=== PATIENT | female | born 1985 | race Caucasian/White ===

== ENCOUNTER → 2017-06-20 20:00 | Outpatient (CLI) | payer OTHER, SELFPAY | PROVIDERS: Family Provider Family Medicine; PCP Family Medicine; Visit Provider Family Medicine | DX: G47.33 Obstructive sleep apnea (adult) (pediatric) (principal) | CPT/HCPCS: 95810 ==

== ENCOUNTER 2017-07-15 06:22 | Emergency (ER) | payer OTHER, SELFPAY ==
[2017-07-15 06:23] VITALS: BP 131/81; PULSE 95; RESP 16; TEMP 37.2; O2SAT 97; BMI 42.1
[2017-07-15 06:26] VITALS: O2SAT 97
--- NOTE | 2017-07-15 06:31 | ED.VISSUMM ---
- ER Visit Summary Date of Service: 07/15/17 Chief Complaint: Sore throat, dyspnea History of Present Illness: The patient is a 32 F sore throat, dyspnea, voice loss since yesterday. No fevers. No sick contacts. No tobacco history. Nontraumatic headache. Nausea vomiting ?1 yesterday. Currently nausea. No hematemesis. No diarrhea. No urinary symptoms. No cough. No other complaints. Physical Examination: General: Alert and oriented ?3, no acute distress, loss of voice HEENT: Normocephalic, atraumatic. Moist mucosa membranes. TMs normal bilaterally. No posterior pharyngeal erythema. Airway patent. No stridor. Neck: supple, nontender. No meningismus. Cardiovascular: Regular rate and rhythm, no murmurs Respiratory: Normal breath sounds, symmetric, no distress Abdomen: Soft, nontender, nondistended Extremities: Nontender, no edema, pulses intact ?4 Neuro: no focal neurological deficits. Test Results: [] Emergency Department Course and Treatment: Patient vital signs stable, no respiratory distress. History presents concerns for laryngitis. She will be given Zofran for dyspnea. Started on Decadron. Tylenol for headache. No focal neurological deficits. No meningismus. Continue oral hydration. Discussed viral syndrome. Follow-up with PCP, return if any worsening symptoms. Treatment Plan: [] Disposition: Discharge Impression: 1. Acute laryngitis 2. Cephalgia This note was generated with ActivePath dictation software. It may contain incorrect words, spelling, and punctuation that were not noted in review of the chart prior to signing ED Disposition - Plan for ED Patient: Disposition: Home or Assisted Living Chief Complaint: Shortness of Breath Diagnosis: Acute laryngitis, Cephalgia Instructions: ED Laryngitis, ED Cephalgia Unspecified Referrals: Rafael Spain MD [Primary Care Provider] - 3-5 Days if not improving
[2017-07-15] MEDS: Ondansetron ODT 4 MG Tablet PO (06:34)
[2017-07-15] MEDS: Acetaminophen 500 MG Tablet 1000 MG PO (06:34)
== END 2017-07-15 07:03 | disposition home or self-care (01) ==
PROVIDERS: Emergency Provider Emergency Medicine; Family Provider Family Medicine; PCP Family Medicine
DX: J04.0 Acute laryngitis (principal); R11.2 Nausea with vomiting, unspecified; R51 Headache; Z79.899 Other long term (current) drug therapy
CPT/HCPCS: 99283

== ENCOUNTER → 2017-07-25 20:15 | Outpatient (CLI) | payer OTHER, SELFPAY | PROVIDERS: Family Provider Family Medicine; PCP Family Medicine; Visit Provider Family Medicine | DX: G47.33 Obstructive sleep apnea (adult) (pediatric) (principal) | CPT/HCPCS: 95811 ==

== ENCOUNTER → 2017-10-24 15:01 | Outpatient (CLI) | payer OTHER, SELFPAY ==
--- NOTE | 2017-10-24 15:20 | RAD_ITS ---
STUDY: X-RAY - CERVICAL SPINE REASON FOR EXAM: Female, 32 years old. No clinical history is given. TECHNIQUE: 4 view(s) of the cervical spine were obtained. COMPARISON: None FINDINGS: There is limited visualization of the atlantoaxial articulation on the open-mouth view. Normal odontoid process. There is reversal of the normal cervical lordosis. Normal vertebral bodies and endplates. Normal disc space heights. The soft tissue structures are unremarkable. RAD/Cerv Spine 2 or 3 Views IMPRESSION: The study is limited due to limited visualization of the atlantoaxial articulation. The odontoid process appears intact. There is reversal of the normal lordotic curvature which may be positional in nature or due to muscular spasm. There is no evidence of fracture or subluxation. Disc spacing is preserved. Electronically Signed: Mason Browne MD at 16:13 EDT , Service support ,
== END ==
PROVIDERS: Family Provider Family Medicine; PCP Family Medicine; Visit Provider Anesthesiology Pain Medicine
DX: M54.2 Cervicalgia (principal)
CPT/HCPCS: 72040

== ENCOUNTER → 2017-11-29 07:02 | Outpatient (CLI) | payer OTHER, SELFPAY ==
--- NOTE | 2017-11-29 07:04 | CT_ITS ---
STUDY: CT MAXILLOFACIAL SINUSES REASON FOR EXAM: Female, 32 years old. Sinusitis. RADIATION DOSAGE (If Supplied By Facility): CTDIvol = ( 33.06 ) mGy, DLP = ( 842.11 ) mGycm TECHNIQUE: The patient was scanned in a multi detector CT scanner. High resolution axial imaging was performed without the administration of intravenous contrast material. Sagittal and coronal images were reconstructed. Individualized dose optimization techniques were used for this CT. COMPARISON: None. FINDINGS: FRONTAL SINUSES: Normal aeration, without mucosal inflammatory disease. ETHMOIDAL SINUSES: Normal aeration, without mucosal inflammatory disease. MAXILLARY SINUSES: There is minimal mucoperiosteal reaction at the base of the right maxillary sinus. SPHENOIDAL SINUSES: Normal aeration, without mucosal inflammatory disease. There is patency of the bilateral maxillary infundibuli with normal uncinate processes, ethmoid bullae, and hiatus semilunaris. There are price bullosa of the bilateral turbinates. Normal bilateral inferior turbinates. Normal midline nasal septum. There is patency of the bilateral nasal airways. The visualized osseous structures are normal. The visualized bilateral orbital contents are normal. CT/Sinus/Facial Bone IMPRESSION: Minimal right maxillary sinusitis. Electronically Signed: Jeff Alejandra DO at 23:54 EDT Tel [phone], Service support ,
== END ==
PROVIDERS: Family Provider Family Medicine; PCP Family Medicine; Visit Provider Otolaryngology
DX: J32.9 Chronic sinusitis, unspecified (principal)
CPT/HCPCS: 70486

== ENCOUNTER → 2018-01-02 15:47 | Outpatient (CLI) | payer OTHER, SELFPAY | PROVIDERS: Visit Provider Otolaryngology | DX: J32.9 Chronic sinusitis, unspecified (principal) | CPT/HCPCS: 87070; 87077; 87186; 87205 ==

== ENCOUNTER → 2018-01-14 11:26 | Outpatient (CLI) | payer OTHER, SELFPAY ==
[2018-01-14 11:30] LABS: Bacteria 0 SEEN /hpf (None Seen); Mucous, Urine 0 SEEN /hpf (<or=2+)
[2018-01-14 14:36] LABS: Color, Urine Yellow (Yellow); Glucose, Dipstick Normal (Normal); Ketone-Dipstick Negative (Negative); Leukocyte Esterase-Dipstick 500 /ul (Negative); Nitrite-Dipstick Negative (Negative); Occult Blood-Urine 10 /ul (Negative); Protein-Dipstick Negative (Negative); Specific Gravity, Urine 1.015 (1.002-1.030); Urine Bilirubin Dipstick Negative (Negative); Urine Clarity Clear (Clear); Urine Urobilinogen Normal (Normal)
[2018-01-14 14:41] LABS: White Blood Cells 10-25 SEEN /hpf (0-5)
[2018-01-14 14:42] LABS: Red Blood Cells-Urine 0-5 SEEN /hpf (0-5); Squamous Epithelial Cells - UA 0-5 SEEN /hpf (5-10)
[2018-01-14 16:09] LABS: Chlamydia Trachomatis by PCR Negative (Negative); Neisserai gonorrhoeae by PCR Negative (Negative); Probe Check PASS; Sample Adequacy Control PASS; Specimen Processing Control PASS
== END ==
PROVIDERS: Family Provider Family Medicine; PCP Family Medicine; Visit Provider Family Medicine
DX: N76.0 Acute vaginitis (principal)
CPT/HCPCS: 81001; 87070; 87077; 87086; 87088; 87205; 87491; 87591

== ENCOUNTER → 2018-02-13 14:54 | Outpatient (CLI) | payer OTHER, SELFPAY ==
--- NOTE | 2018-02-13 14:58 | BI_ITS ---
MAMMOGRAPHY - BILATERAL SCREENING REASON FOR EXAM: Female, 33 years old. Routine annual screening examination. PERTINENT HISTORY: Grandmother with breast cancer. Aunts with breast cancer. TECHNIQUE: Digital bilateral breast marc (3D mammographic acquisition) in the CC and MLO projections. 2-D mediolateral oblique (MLO) and craniocaudad (CC) views of both breasts were obtained. CAD: Full Field Digital Mammography with Computer Added Detection was performed. COMPARISON: None. Baseline examination. FINDINGS: Breast Composition: There are scattered areas of fibroglandular density. There are no dominant masses or suspicious calcifications. No other significant abnormalities are identified. BI/SCREENING MAMM (CAD), BILAT IMPRESSION: Negative screening mammogram. Yearly followup mammogram recommended. (A) ASSESSMENT CATEGORY: BIRADS Category 1: Negative. A letter regarding these results will be sent to the patient by the facility within 30 days. Approximately 10% of breast cancers are not detected by mammography. A normal mammogram should not delay biopsy of a clinically suspicious abnormality. [id number] Electronically Signed: Reggie Laureano MD at 14:46 EDT Tel [phone], Service support ,
== END ==
PROVIDERS: Family Provider Family Medicine; PCP Family Medicine; Visit Provider Nurse Practitioner Family
DX: Z12.31 Encounter for screening mammogram for malignant neoplasm of breast (principal)
CPT/HCPCS: 77063; 77067

== ENCOUNTER → 2018-05-20 17:52 | Outpatient (CLI) | payer OTHER, SELFPAY ==
--- NOTE | 2018-05-20 | IMM_PTH ---
PATIENT: LANCE MALHOTRA LOC: [facility] U#:[id number] AGE/SX: 40/F ROOM: RE05/20/[address]: Dr. Rafael Spain MD : 1985 BED: DIS: SPEC #: [id number] RECD: 05/22/18 12:11 STATUS: LUCRETIA NOREEN #: [id number] MATT: 05/20/18 00:[address]: Rafael Spain DEPT: IMMUNOHISTOCHEMISTRY RECD BY: Nellie Shah Tissues: A - Skin of leg, NOS Procedures: SMA (add) CD34 (add) Vimentin (add) SMM (add) Pankeratin (initial) MELAN-A (add) S-100 (add) PHYSICIAN & INSTITUTION [facility] [phone] SPECIMEN INFORMATION: Tissue Source: A - Left leg mass punch biopsy Clinical Info: Left leg mass Specimen Number: [id number] CPT code: 44147, 20049 x6 METHODOLOGY: Deparaffinized sections of prefer/formalin-fixed tissue or PAP/DQ stained slides are incubated with monoclonal/polyclonal antibodies/oligonucleotide probes. Localization is made via biotin free immunoperoxidase method. Appropriate controls are performed and reacted as expected. Results on target cell population are indicated in the following table: RESULTS: ANTIBODY / CLONE RESULT Block A AE1-3 (AE1/AE3/PCK26) negative Actin (1A4) positive, dim Vimentin (V9) positive Myosin (simms1) negative S-100 (4C4.9) negative Melan A (A103) negative CD34 (QBEnd-10) negative These tests were developed and their performance characteristics determined by [facility]. They may not have been cleared or approved by the U.S. Food and Drug Administration. The FDA has determined that such clearance or approval is not necessary. INTERPRETATION: A. Left leg mass, punch biopsy: Consistent with dermatofibroma AM:cc 05/25/18
--- NOTE | 2018-05-20 15:00 | MASS_PTH ---
PATIENT: LANCE MALHOTRA LOC: [facility] U#:[id number] AGE/SX: 40/F ROOM: RE05/20/[address]: Dr. Rafael Spain MD : 1985 BED: DIS: SPEC #: [id number] RECD: 05/20/18 17:50 STATUS: LUCRETIA NOREEN #: [id number] MATT: 05/20/18 15:[address]: Rafael Spain DEPT: SURGICAL PATHOLOGY RECD BY: Bhupinder Cowan Tissues: A - Left leg B - Face, NOS Procedures: Surgery Specimen Level IV HEADER OPERATION: Left leg mass punch biopsy; facial mole excision PRE-OP DIAGNOSIS: Left leg mass; facial mole TISSUE SUBMITTED: A - Left leg mass punch biopsy, B - Mole from face MICROSCOPIC DIAGNOSIS A. Skin lesion of left leg, punch biopsy: Consistent with dermatofibroma. See comment. B. Skin lesion of face, shave biopsy: Intradermal nevus. AM:bev 05/22/18 COMMENT A. Immunohistochemistry ([id number]) supports the above diagnosis. MICROSCOPIC DESCRIPTION Slides are reviewed. GROSS DESCRIPTION A - Received in fixative is one container labeled with the patient's name and designated mass on leg, left. The specimen consists of a punch biopsy of le-white skin measuring 0.5 cm in diameter and 0.3 cm in length. The specimen is inked and submitted entirely in one cassette. It will be bisected at the time of embedding. B - Received in fixative is one container labeled with the patient's name and designated mole from face. The specimen consists of a piece of le-white skin measuring 0.7 x 0.5 cm and up to 0.2 cm in thickness. There is a round brown lesion on the surface measuring 0.5 cm in diameter. The specimen is inked and submitted entirely in one cassette. It will be bisected at the time of embedding. / SJ:bev 05/21/18 TC:5 CPT: 49865 x2
--- OUTSIDE RECORDS SUMMARY | 2018-07-25 20:06 | XMS RPT_ITS ---
:1985 Author Organization OHIP Support Name Relationship Address Phone [facility] Unavailable [address] + [place] [address] ROSCOE, BEAU Unavailable [address] + [place] [address] [facility] Unavailable [address] + [place] [address] ROSCOE, BEAU Unavailable [address] + [place] [address] [facility] Unavailable [address] + [place] [address] ROSCOE, BEAU Unavailable [address] + [place] [address] [facility] Unavailable [address] + [place] [address] ROSCOE, BEAU Unavailable [address] + [place] [address] ROSCOE, BEAU Unavailable [address] + [place] [address] UE Unavailable Unavailable Unavailable ROSCOE, BEAU Unavailable [address] + [place] [address] UE Unavailable Unavailable Unavailable ROSCOE, BEAU Unavailable [address] + [place] [address] UE Unavailable Unavailable Unavailable ROSCOE, BEAU Unavailable [address] + [place] [address] UE Unavailable Unavailable Unavailable ROSCOE, BEAU Unavailable Unavailable + [place] [address] UE Unavailable Unavailable Unavailable ROSCOE, BEAU Unavailable [address] + [place] [address] UE Unavailable Unavailable Unavailable ANIA JEAN Unavailable [address] [place] [address] + [place] [address] UE Unavailable Unavailable Unavailable Care Team Providers Name Role Phone Rafael Solomon Attending Unavailable Solomon, Rafael Primary Care Unavailable Solomon, Rafael Primary Care Unavailable Trung Chand Attending Unavailable Solomon, Rafael Attending Unavailable Solomon, Rafael Referring Unavailable Solomon, Rafael Primary Care Unavailable Donis Mirza Attending Unavailable Solomon, Rafael Primary Care Unavailable Vin, Cristino Attending Unavailable Solomon, Rafael Primary Care Unavailable Banuelos, Cristino Referring Unavailable Wartmann, Miguel Angel Attending Unavailable Solomon, Rafael Primary Care Unavailable Wartmann, Miguel Angel Referring Unavailable Wartmann, Miguel Angel Attending Unavailable Wartmann, Miguel Angel Referring Unavailable Solomon, Rafael Primary Care Unavailable Corrine, Sunshine Attending Unavailable Basali, Sunshine Referring Unavailable Solomon, Rafael Primary Care Unavailable Solomon, Rafael Attending Unavailable Solomon, Rafael Primary Care Unavailable Steven Verdin Attending Unavailable Solomon, Rafael Referring Unavailable Stephanie Marin Attending Unavailable EVERARDO THURMAN (CARMEN) Attending Unavailable SOLOMON, RAFAEL MILLS Referring Unavailable Yaneth Lemons Primary Care Unavailable Darwin Washington Admitting Unavailable Darwin Washington Attending Unavailable PROBLEMS PROBLEMS DATE TYPE CONDITION / CODE ATTENDING STATUS SOURCE 01/14/2018 Unknown N76.0 - Acute Cristino Banuelos Active [place] vaginitis / Community N76.0(ICD-10) Hospital Repository 06/20/2017 Unknown G47.10 - Grabiel Rafael Active [place] Hypersomnia, Community unspecified / Hospital G47.10(ICD-10) Repository 06/20/2017 Unknown G47.30 - Sleep Solomon, Rafael Active [place] apnea, Community unspecified / Hospital G47.30(ICD-10) Repository PROCEDURES PROCEDURES No Procedure Records FoundRESULTS RESULTS MASS (DEFINE AREA) Observed: 05/20/2018 Status: F Source: JAZMIN 3:00 PM [facility] REPOSITORY Patient: MERCEDES JEAN : 1985 (33/F) Acct Num: [id number] Phys: Rafael Solomon MD Unit Num: [id number] Loc: LABSPEC Specimen: [id number] Received: 05/20/181749 Spec Type: Mass TISSUES 1 TISSUES: A. Left leg B. Face, NOS COMMENT A. Immunohistochemistry ([id number]) supports the above diagnosis. GROSS DESCRIPTION A - Received in fixative is one container labeled with the patient's name and designated mass on leg, left. The specimen consists of a punch biopsy of le- white skin measuring 0.5 cm in diameter and 0.3 cm in length. The specimen is inked and submitted entirely in one cassette. It will be bisected at the time of embedding. B - Received in fixative is one container labeled with the patient's name and designated mole from face. The specimen consists of a piece of le-white skin measuring 0.7 x 0.5 cm and up to 0.2 cm in thickness. There is a round brown lesion on the surface measuring 0.5 cm in diameter. The specimen is inked and submitted entirely in one cassette. It will be bisected at the time of embedding. / SJ:bev 05/21/18 TC:5 CPT: 16263 x2 HEADER OPERATION: Left leg mass punch biopsy; facial mole excision PRE-OP DIAGNOSIS: Left leg mass; facial mole TISSUE SUBMITTED: A - Left leg mass punch biopsy, B - Mole from face MICROSCOPIC DESCRIPTION Slides are reviewed. MICROSCOPIC DIAGNOSIS A. Skin lesion of left leg, punch biopsy: Consistent with dermatofibroma. See comment. B. Skin lesion of face, shave biopsy: Intradermal nevus. AM:bev 05/22/18 Signed Dennis Barr DO 05/25/18 <signature on file> Performed By: #### PMA #### [facility] [address] [place] [address]. [place], [address] IMMUNOHISTOCHEMISTRY Observed: 05/20/2018 Status: F Source: WHICK 12:00 AM [facility] REPOSITORY Patient: MERCEDES JEAN : 1985 (33/F) Acct Num: [id number] Phys: Grabiel SMALL,Rafael Unit Num: [id number] Loc: LABSPEC Specimen: [id number] Received: 05/22/18 - 1211 Spec Type: IMMUNO TISSUES 1 TISSUES: A. Skin of leg, NOS SPECIMEN INFORMATION: Tissue Source: A - Left leg mass punch biopsy Clinical Info: Left leg mass Specimen Number: [id number] CPT code: 27503, 24447 x6 METHODOLOGY: Deparaffinized sections of prefer/formalin-fixed tissue or PAP/DQ stained slides are incubated with monoclonal/polyclonal antibodies/oligonucleotide probes. Localization is made via biotin free immunoperoxidase method. Appropriate controls are performed and reacted as expected. Results on target cell population are indicated in the following table: RESULTS: ANTIBODY / CLONE RESULT Block A AE1-3 (AE1/AE3/PCK26) negative Actin (1A4) positive, dim Vimentin (V9) positive Myosin (simms1) negative S-100 (4C4.9) negative Melan A (A103) negative CD34 (QBEnd-10) negative These tests were developed and their performance characteristics determined by [facility]. They may not have been cleared or approved by the U.S. Food and Drug Administration. The FDA has determined that such clearance or approval is not necessary. INTERPRETATION: A. Left leg mass, punch biopsy: Consistent with dermatofibroma AM:cc 05/25/18 PHYSICIAN AND INSTITUTION [place] [address] Signed Dennis Barr, DO 05/25/18 <signature on file> Performed By: #### PIMM #### [facility] [address] [place] [address]. [place], [address] SCREENING MAMM (CAD), Observed: 02/13/2018 Status: F Source: [facility] 2:58 PM [facility] REPOSITORY [facility] Imaging Services [address] [place] [address] SCREENING MAMM (CAD), BILAT MR#: [id number] Acct: [id number] Name: MERCEDES JEAN Rep #: [id number] : 1985 F 33 From: Reggie Laureano MD PCP: Rafael Solomon MD Status: REG CLI Study: SCREENING MAMM (CAD), BILAT Date of Exam: 02/13/18 Exam# [id number] Ordering Dr: Donis Mirza MAMMOGRAPHY - BILATERAL SCREENING REASON FOR EXAM: Female, 33 years old. Routine annual screening examination. PERTINENT HISTORY: Grandmother with breast cancer. Aunts with breast cancer. TECHNIQUE: Digital bilateral breast marc (3D mammographic acquisition) in the CC and MLO projections. 2-D mediolateral oblique (MLO) and craniocaudad (CC) views of both breasts were obtained. CAD: Full Field Digital Mammography with Computer Added Detection was performed. COMPARISON: None. Baseline examination. FINDINGS: Breast Composition: There are scattered areas of fibroglandular density. There are no dominant masses or suspicious calcifications. No other significant abnormalities are identified. BI/SCREENING MAMM (CAD), BILAT IMPRESSION: Negative screening mammogram. Yearly followup mammogram recommended. (A) ASSESSMENT CATEGORY: BIRADS Category 1: Negative. A letter regarding these results will be sent to the patient by the facility within 30 days. Approximately 10% of breast cancers are not detected by mammography. A normal mammogram should not delay biopsy of a clinically suspicious abnormality. [id number] Electronically Signed: Reggie Laureano MD at 14:46 EDT Tel [phone], Service support , CC: SRINIVAS Mirza; Rafael Solomon MD Tube Station Attendant: Signed URINALYSIS, COMPLETE Collected: 01/14/2018 Status: F Source: JAZMIN 11:27 AM [facility] REPOSITORY Order Comment: How was Urine Obtained? CLEAN CATCH TYPE CODE TESTS RESULT OUT OF RANGE REFERENCE UNITS LAB L400.3000 Yellow COLOR Normal Yellow LAB L400.3050 Clear Normal CLARITY Clear LAB L400.3200 Normal mg/dl Normal GLUCOSE, UR Normal LAB L400.3300 Negative mg/dL Normal BILIRUBIN URINE Negative LAB L400.3400 Negative mg/dl Normal KETONE UR Negative LAB L400.3465 1.002-1.030 Normal SP.GR. DIPSTX 1.015 LAB L400.3550 5.0 - 8.0 pH UR Normal 6.0 LAB L400.3600 Negative mg/dl PROT Normal DIPSTX Negative LAB L400.3700 Normal mg/dl Normal UROBILI Normal LAB L400.3750 Negative Normal NITRITE UR Negative LAB L400.3780 Negative /ul High 10 OCCULT BLOOD-UR LAB L400.3800 Negative /ul High LEUK ESTERASE 500 LAB L400.4050 0-5 /hpf WBC Normal 10-25 SEEN LAB L400.4100 0-5 /hpf Normal RBC-UA 0-5 SEEN LAB L400.4150 5-10 /hpf SQUAM Normal EPI 0-5 SEEN LAB L400.4300 None Seen /hpf 0 Normal BACTERIA SEEN LAB L400.4350 <or=2+ /hpf 0 Normal MUCUS, URINE SEEN Performed By: #### L400.0001 #### [facility] [place], [address] CT/NG [facility] BY PCR Collected: 01/14/2018 Status: F Source: JAZMIN 11:27 AM [facility] REPOSITORY TYPE CODE TESTS RESULT OUT OF RANGE REFERENCE UNITS LAB L8200.2100 Negative Normal Chlam Negative Trac PCR LAB L8200.2200 Negative Normal NG by Negative PCR Performed By: #### L8200.2000 #### [facility] [place], [address] Observed: 01/14/2018 Status: F Source: JAZMIN CULTURE, URINE 11:27 AM [facility] REPOSITORY Urine Culture Below infection level. ORGANISM 1: Mixed Gram Pos AND Gram Neg Org [place] Count 1000-10,000 Performed By: #### M100.0650 #### [facility] [place], [address] Observed: 01/14/2018 Status: F Source: JAZMIN CULTURE, GENITAL 11:00 AM [facility] REPOSITORY Comments: VAGINAL DISCHARGE Gram Stain Score = 3 Interpretation: 0-3 Normal, 4-6 Intermediate, 7-10 Positive BV Gram Stain Rare White Blood Cells 2+ Gram positive rods 1+ Gram negative rods Gent Cult Comp Normal vaginal janny isolated. No yeast, Gardnerella, Neisseria isolated. ORGANISM 1: Streptococcus group B Amount Growth Very Rare Performed By: #### M100.1600 #### [facility] [address] [place], [address] Observed: 01/02/2018 Status: F Source: WHICK CULTURE, NOSE 10:10 AM [facility] REPOSITORY Gram Stain Gram Stain Rare Epithelial cells Rare White Blood Cells Rare Gram negative rods Nasoph. Cult ORGANISM 1: Enterobacter aerogenes Amount Growth 2+ ORGANISM 2: Staphylococcus aureus Amount Growth Rare Enterobacter aerogenes: REACTION Amoxacillin/Clavulanic Acid $ <=2 R Cefazolin $ <=4 R Cefepime $ <=1 S Ceftriaxone $ <=1 S Ciprofloxacin $ <=0.25 S Ertapenim $$$ <=0.5 S Gentamicin $ <=1 S Imipenem *NF <=0.25 S Levofloxacin $ <=0.12 S Piperacillin/Tazobactam $$ <=4 S Tobramycin $ <=1 S Trimethoprim/Sulfametho $ <=20 S (NF) indicates non-formulary drug at [facility]. Approval by Infectious Disease Specialist required before non-formulary drugs may be ordered and/or dispensed. Staphylococcus aureus: REACTION Benzylpenicillin NF 0.06 R Cefoxitin *NF - Clindamycin $$ <=0.25 S Inducable Clindamycin Resistan - Erythromycin $ 0.5 S Gentamicin $ <=0.5 S Levofloxacin $ <=0.12 S Linezolid $$$$ 2 S Moxifloxicin *NF <=0.25 S Oxacillin NF <=0.25 S Tigecycline $$$$ <=0.12 S Rifampin $$ <=0.5 S Tetracycline NF <=1 S Trimethoprim/Sulfametho $ <=10 S Vancomycin $ 1 S (NF) indicates non-formulary drug at [facility]. Approval by Infectious Disease Specialist required before non-formulary drugs may be ordered and/or dispensed. * CLSI guidelines does not recommend testing of cephalosporins. This interpretation is deduced from Beta-lactam/penicillin results. Performed By: #### M100.0900 #### [facility] [address] [place], [address] SINUS/FACIAL BONE Observed: 11/29/2017 Status: F Source: JAZMIN 7:05 AM [facility] REPOSITORY [facility] Imaging Services [address] [address] Sinus/Facial Bone MR#: [id number] Acct: [id number] Name: MERCEDES JEAN Rep #: [id number] : 1985 F 32 From: Jeff Alejandra DO PCP: Rafael Solomon MD Status: REG CLI Study: Sinus/Facial Bone Date of Exam: 11/29/17 Exam# [id number] Ordering Dr: Miguel Angel Muir MD STUDY: CT MAXILLOFACIAL SINUSES REASON FOR EXAM: Female, 32 years old. Sinusitis. RADIATION DOSAGE (If Supplied By Facility): CTDIvol = ( 33.06 ) mGy, DLP = ( 842.11 ) mGycm TECHNIQUE: The patient was scanned in a multi detector CT scanner. High resolution axial imaging was performed without the administration of intravenous contrast material. Sagittal and coronal images were reconstructed. Individualized dose optimization techniques were used for this CT. COMPARISON: None. FINDINGS: FRONTAL SINUSES: Normal aeration, without mucosal inflammatory disease. ETHMOIDAL SINUSES: Normal aeration, without mucosal inflammatory disease. MAXILLARY SINUSES: There is minimal mucoperiosteal reaction at the base of the right maxillary sinus. SPHENOIDAL SINUSES: Normal aeration, without mucosal inflammatory disease. There is patency of the bilateral maxillary infundibuli with normal uncinate processes, ethmoid bullae, and hiatus semilunaris. There are price bullosa of the bilateral turbinates. Normal bilateral inferior turbinates. Normal midline nasal septum. There is patency of the bilateral nasal airways. The visualized osseous structures are normal. The visualized bilateral orbital contents are normal. CT/Sinus/Facial Bone IMPRESSION: Minimal right maxillary sinusitis. Electronically Signed: Jeff NyDO at 23:54 EDT Tel [phone], Service support , CC: Alexander Muir MD; Rafael Solomon MD Tube Station Attendant: Signed CERV SPINE 2 OR 3 Observed: 10/24/2017 Status: F Source: WHICK VIEWS 3:04 PM [facility] REPOSITORY [facility] Imaging Services [address] [place] [address] Cerv Spine 2 or 3 Views MR#: [id number] Acct: [id number] Name: MERCEDES JEAN Rep #: [id number] : 1985 F 32 From: Mason Browne MD PCP: Rafael Solomon MD Status: REG CLI Study: Cerv Spine 2 or 3 Views Date of Exam: 10/24/17 Exam# [id number] Ordering Dr: Sunshine Castle MD STUDY: X-RAY - CERVICAL SPINE REASON FOR EXAM: Female, 32 years old. No clinical history is given. TECHNIQUE: 4 view(s) of the cervical spine were obtained. COMPARISON: None FINDINGS: There is limited visualization of the atlantoaxial articulation on the open-mouth view. Normal odontoid process. There is reversal of the normal cervical lordosis. Normal vertebral bodies and endplates. Normal disc space heights. The soft tissue structures are unremarkable. RAD/Cerv Spine 2 or 3 Views IMPRESSION: The study is limited due to limited visualization of the atlantoaxial articulation. The odontoid process appears intact. There is reversal of the normal lordotic curvature which may be positional in nature or due to muscular spasm. There is no evidence of fracture or subluxation. Disc spacing is preserved. Electronically Signed: Mason Browne MD at 16:13 EDT , Service support , CC: Sunshine Castle MD; Rafael Solomon MD Tube Station Attendant: Signed CNOV Observed: 10/21/2017 Status: COMPLETED Source: [facility] 2:10 PM [facility] REPOSITORY Office Visit (NEUSPM) MERCEDES JEAN ([id number]) 1985 F Date Time Provider Department 10/21/17 2:10 PM EVERARDO THURMAN) YAN During your visit today, we recorded the following information about you: Pulse Blood pressure Weight 70/minute 124/72 121.7 kg Everardo Thurman PA-C 10/21/2017 3:37 PM Signed OUTPATIENT ADULT NEUROSURGICAL CONSULTATION Dear Dr Rafael Solomon MD: Thank you for your kind referral of Mercedes Jean for consultation. Mercedes Jean was evaluated in the adult neurosurgery clinic on 10/21/2017 for the problem of chiari. Although her history is well known to you, please allow me to reiterate it for the purpose of my medical record. Informant: History obtained from patient. Chief Complaint: Headaches, fluid sensation in head, head spasms. History of Present Illness: Mercedes Jean is a 32 year old female with a hx of depression/anxiety, PCOS, SONNY, and a chiari malformation who presents today for a new patient consultation. She notes headaches and a sensation of fluid moving down the back of her head since childhood. When she was last year she had preeclampsia and a bad headache for which she had a CT revealing the chiari. She was then followed with her PCP whom eventually got the MRI and she was referred to neurology. She started with neurology whom recommended topamax, pain management, and neurosurgeon. She started the topamax about a week ago and this has seemed to help improve her headache frequency. Her headaches are a suboccipital spike type pain. She denies any triggers, she denies valsalva activities trigger them. It seems to occur daily. It seems to present gradually. It last a few hours. It improves with being in quiet environments. They have been stable. She acknowledges that bearing down/valsalva will exacerbate a headache but will not cause a headache. Bending over can also exacerbate a headache but not cause a headache. She was managing them with PRN ibuprofen for many years. The ibuprofen would help. She notes she would take at least 30 per week. Her neurologist recently stopped this. She also notes a sensation of fluid moving from her vertex down her occipital area into her neck. Seems to occur several times per week. 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 Seems to occur randomly. She notes that after this occurs she feels less tight in her neck/head. She also notes some R occipital spasm sensations which has been going on for the past year. Seems to occur several times per month. Presents randomly and then persists on and off for about an hour or two. She notes intermittent lightheadedness, penitentiary. Seems to present randomly. She acknowledges blurry vision, but only with her headaches. This is penitentiary and stable. Her recent neurologist appointment noted no papilledema. She notes she seems to be more gaggy over the past 2 years. However this does not seem to occur just with eating/drinking. She has had a sleep study which showed SONNY, But she is unsure of Central leep apnea. She wears a CPAP. She notes she has had urinary urgency for the past year or two. She denies any incontinence. This did not present after her C/S. Seems to be worsening. She discussed with her PCP whom recommended monitoring. 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 She deny any facial pain/paresthesias, UE or LE pain/paresthesias/weakness, other bowel/bladder dysfunction, loss of pain/temperature sensation, or significant gait imbalance. PAST HISTORY: PAST MEDICAL HISTORY Diagnosis Date - Anxiety - Depression - Gestational diabetes mellitus, class A1 08/26/2016 - Gestational hypertension without significant proteinuria in third trimester 10/08/2016 - High cholesterol - Infertility, female has not used control for 3+ years PAST SURGICAL HISTORY Procedure Laterality Date - DELIVERY ONLY 10/17/2016 cardiomyopathy, chiacari malformation - PAST SURGICAL HISTORY OF Scar Tissue Removed From Abdomen(lipoma) Family History: FAMILY HISTORY Problem Relation Age of Onset - Hypertension Mother - Lipids Mother High cholesterol - Seizures Mother - Breast Cancer Maternal Grandmother - Heart Maternal Grandfather - Psychiatry Paternal Grandfather Bi-Polar - Heart Paternal Grandfather - Breast Cancer Maternal Aunt Social History: Social History Marital status: Spouse name: Ania Years of education: 16 Number of children: 0 Occupational History Occupation Employer [employer] Social History Main Topics Smoking status: Never Smoker Smokeless tobacco: Never Used Alcohol use: Yes Comment: Socially, not while Drug use: No Sexual activity: Yes Partners with: Male control/protection: None Current Outpatient Prescriptions: FOLIC ACID ORAL Take 1 mg by mouth once daily. metformin HCl (METFORMIN ORAL) Take 500 mg by mouth once daily. topiramate (TOPAMAX) 25 mg tablet Take 25 mg by mouth twice daily. escitalopram oxalate (LEXAPRO) 20 mg tablet Take 20 mg by mouth once daily. norethindrone-ethinyl estrad (ALYACEN , 28, ORAL) Take by mouth once daily. ferrous sulfate 325 mg (65 mg iron) tablet Take 325 mg by mouth. No current facility-administered medications for this visit. No current facility-administered medications on file prior to visit. Allergies: ALLERGIES No Known Allergies Review of Systems: General: No significant weight loss. Head: See HPI Eyes: No vision problems identified. + tinnitus for about 5 years. Ears: No hearing problems identified Respiratory: Negative for cough, wheezing, or shortness of breath Cardiovascular: Denies any chest pain or shortness of breath with exertion, Regular rate and rhythm without significant murmurs Gastrointestinal: Negative for abdominal pain, vomiting, or constipation Genitourinary: See HPI Musculoskeletal: Normal and symmetrical in upper and lower extremities Skin: Negative for lesions, rash, and itching. + eczema Psychiatric: See HPI Hematology/Lymphology: + frequent bloody noses. Endocrine: PCOS. Gestational diabetes, resolved. Neurological: See History of Present Illness PHYSICAL EXAM: BP 124/72 (BP Site: Right Arm, BP Position: Sitting, BP Cuff Size: Large Adult) Pulse 70 Wt 121.7 kg (268 lb 3.2 oz) ? No BMI 39.61 kg/m? General: well-appearing and undistressed young woman. She is non-dysmorphic Head: normocephalic,atraumatic Eyes: Eyes are symmetrical, there are no signs of conjunctivitis, swelling or proptosis and gaze is conjugate Neck: Supple; good ROM. Cardiovascular: Regular rate and rhythm, Normal S1 and S2 Lungs: Clear to auscultation Musculoskeletal: Muscle tone normal in all four limbs without atrophy. Muscle strength 5/5 in both upper and lower extremities Mental status is normal. Neurological: Higher integrative functions: oriented to person, place and time Memory: good recent and remote Attention span and concentration: good 2nd cranial nerve: full visual fernández 3rd, 4th and 6th cranial nerves: PERRL, full extraocular movements 5th cranial nerve: no decrease in facial sensation 7th cranial nerve: facial muscles symmetric and strong 8th cranial nerve: hears finger rub well bilaterally 9th and 10th cranial nerves: spontaneous palate movement, full and symmetric 11th cranial nerve: full strength in shoulder shrug 12th cranial nerve: tongue protrusion full and midline Myotactic reflexes: 2+ and symmetrical, Patellar Gait: Normal Romberg: Negative Sensory examination is grossly intact to light touch Everardo Thurman PA-C MEDICAL DECISION MAKING DATA REVIEW: Excerpt from CT Brain scan 10/17/16: Impression: There are extensive cerebellar tonsils through the foramen magnum. Consistent with a mild chiari 1 malformation. Otherwise normal unenhanced CT scan of the brain. Excerpt from MRI brain 05/27/17: Impression: The tips of the cerebellar tonsils are located 5mm below the foramen magnum. This is compatible with benign tonsillar ectopia. No clara Chiari 1 malformation is seen. No evidence of acute intra-axial pathology. Everardo Thurman PA-C IMPRESSION In summary, Mercedes Jean is a 32 year old female with a hx of depression/anxiety, PCOS, SONNY, and a chiari malformation who presents today for a new patient consultation. She has a long h/o headaches and a sensation of fluid moving in the back of her head. The etiology for these symptoms is unclear. Her mri shows a minimal chiari malformation without significant compression. While the location for her headaches is consistent with a symptomatic chiari, her mild anatomy is less convincing. She just started with neurology 2 weeks ago and it seems that topamax is already helping her. Given this and her mild anatomy I would recommend to continue with neurology for now. I would like to see her back in 3-6 months for an update. We also discussed a possible spine mri to assess for tethered cord or syrinx, but she has no clear symptoms of these and with her mild anatomy I think that this would be low yield. We also discussed a possible ophthalmology consult to rule out papilledema, but her neurologist already noted that they did not see papilledema. For new or persistent symptoms we will reconsider these options. RECOMMENDATIONS The above was extensively discussed with the patient. Based on our findings, I would recommend to continue with neurology. I would like to see Mercedes Jean back in clinic for a follow up visit and repeat assesment in 3-6 months time. TREATMENT OPTIONS AND RISKS: I have discussed the management options and there respective risks and benefits with the patient. Thank you for the opportunity to participate in Mercedes Jean's care. If I can answer any additional questions, I would be pleased to do so. Sincerely, Everardo Thurman PA-C. Supervising Physician: Barbara Iniguez MD, Addi Travis MD, PhD. Pediatric and Adult Neurosurgery 10/21/2017 CC: These final recommendations will be communicated back to the requesting physician/primary care physician by way of shared medical record Referring Provider: RAFAEL SOLOMON [[id number]] Allergies As of Date: 10/21/2017 (No Known Allergies) Date Reviewed: 10/21/2017 Reviewed by: Haylie Nunes - Fully Assessed Reason for Visit: New Patient [172] Primary Visit Diagnosis:Chiari malformation type I (HCC) [G93.5] Other Visit Diagnoses:Nonintractable headache, unspecified chronicity pattern, unspecified headache type [R51] Paresthesia of skin [R20.2] Prescriptions as of 10/21/2017 Sig: FOLIC ACID ORAL Take 1 mg by mouth once daily. METFORMIN ORAL Take 500 mg by mouth once alice* TOPIRAMATE 25 MG TABLET Take 25 mg by mouth twice alice* ESCITALOPRAM 20 MG TABLET Take 20 mg by mouth once becky* ALYACEN (28) ORAL Take by mouth once daily. FERROUS SULFATE 325 MG (65 MG* Take 325 mg by mouth. More... Problem List As Of Date 10/21/2017 Noted Resolved Obesity in [O99.210] INVALID FOR*11/25/2016 More... History of depression, currently pre*INVALID FOR*11/25/2016 More... Patient requested diagnostic testing [Z01.89] INVALID FOR*11/25/2016 More... Rh negative state in antepartum period [O09.899]INVALID FOR*11/25/2016 Abnormal glucose complicating [O99.81*INVALID FOR*11/25/2016 More... Gestational diabetes mellitus, class A1 [O24.41*INVALID FOR* Malposition or malpresentation of fetus [O32.9X*INVALID FOR*10/15/2016 More... More... Chiari malformation type I (HCC) [G93.5] INVALID FOR* Nonintractable headache [R51] INVALID FOR* Paresthesia of skin [R20.2] INVALID FOR* Medications Discontinued During This Encounter citalopram (CELEXA) 40 mg tablet 30 t* 5 11/11/2016 10/21/2017 Sig: TAKE 1 TABLET BY MOUTH ONCE DAILY Disc: Clinical Decision citalopram hydrobromide (CELEXA) 10 * 30 t* 12 06/24/2016 10/21/2017 Route: ORAL Sig: Take 1 tablet by mouth once daily. Take with the 40 mg tablet, daily Disc: Clinical Decision Gibbdqwv-Bn-Ejp-Fe-FA (PREN* 10/21/2017 Class: Historical Med Route: ORAL Sig: Take 1 tablet by mouth. Disc: Clinical Decision norgestimate 0.25 mg-ethinyl estradi* 1 Pa* 14 03/14/2017 10/21/2017 Route: ORAL Sig: Take 1 tablet by mouth once daily. Disc: Clinical Decision Disposition: Return in about 3 months (around 01/21/2018). Follow-up and Disposition History Recorded Encounter Status:Closed by EVERARDO THURMAN PA-C on 10/21/17 PROGRESS Observed: 10/16/2017 Status: COMPLETED Source: [place] 3:35 PM [facility] REPOSITORY HNO ID: [id number] Author: Everardo Bansal) Maris Service: (none) Author Type: Physician [employer] Type: Progress Notes Filed: 10/21/2017 3:37 PM Note Text: OUTPATIENT ADULT NEUROSURGICAL CONSULTATION Dear Dr Rafael Solomon MD: Thank you for your kind referral of [facility] [place] for consultation. Mercedes Jean was evaluated in the adult neurosurgery clinic on 10/21/2017 for the problem of chiari. Although her history is well known to you, please allow me to reiterate it for the purpose of my medical record. Informant: History obtained from patient. Chief Complaint: Headaches, fluid sensation in head, head spasms. History of Present Illness: Mercedes Jean is a 32 year old female with a hx of depression/anxiety, PCOS, SONNY, and a chiari malformation who presents today for a new patient consultation. She notes headaches and a sensation of fluid moving down the back of her head since childhood. When she was last year she had preeclampsia and a bad headache for which she had a CT revealing the chiari. She was then followed with her PCP whom eventually got the MRI and she was referred to neurology. She started with neurology whom recommended topamax, pain management, and neurosurgeon. She started the topamax about a week ago and this has seemed to help improve her headache frequency. Her headaches are a suboccipital spike type pain. She denies any triggers, she denies valsalva activities trigger them. It seems to occur daily. It seems to present gradually. It last a few hours. It improves with being in quiet environments. They have been stable. She acknowledges that bearing down/valsalva will exacerbate a headache but will not cause a headache. Bending over can also exacerbate a headache but not cause a headache. She was managing them with PRN ibuprofen for many years. The ibuprofen would help. She notes she would take at least 30 per week. Her neurologist recently stopped this. She also notes a sensation of fluid moving from her vertex down her occipital area into her neck. Seems to occur several times per week. This is penitentiary and stable. Seems to occur randomly. She notes that after this occurs she feels less tight in her neck/head. She also notes some R occipital spasm sensations which has been going on for the past year. Seems to occur several times per month. Presents randomly and then persists on and off for about an hour or two. 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 Seems to present randomly. She acknowledges blurry vision, but only with her headaches. This is penitentiary and stable. Her recent neurologist appointment noted no papilledema. She notes she seems to be more gaggy over the past 2 years. However this does not seem to occur just with eating/drinking. She has had a sleep study which showed SONNY, But she is unsure of Central leep apnea. She wears a CPAP. She notes she has had urinary urgency for the past year or two. She denies any incontinence. This did not present after her C/S. Seems to be worsening. She discussed with her PCP whom recommended monitoring. She notes penitentiary clumsiness. She deny any facial pain/paresthesias, UE or LE pain/paresthesias/weakness, other bowel/bladder dysfunction, loss of pain/temperature sensation, or significant gait imbalance. PAST HISTORY: PAST MEDICAL HISTORY Diagnosis Date - Anxiety - Depression - Gestational diabetes mellitus, class A1 08/26/2016 - Gestational hypertension without significant proteinuria in third trimester 10/08/2016 - High cholesterol - Infertility, female has not used control for 3+ years PAST SURGICAL HISTORY Procedure Laterality Date - DELIVERY ONLY 10/17/2016 cardiomyopathy, chiacari malformation - PAST SURGICAL HISTORY OF Scar Tissue Removed From Abdomen(lipoma) Family History: FAMILY HISTORY Problem Relation Age of Onset - Hypertension Mother - Lipids Mother High cholesterol - Seizures Mother - Breast Cancer Maternal Grandmother - Heart Maternal Grandfather - Psychiatry Paternal Grandfather Bi-Polar - Heart Paternal Grandfather - Breast Cancer Maternal Aunt Social History: Social History Marital status: Spouse name: Ania Years of education: 16 Number of children: 0 Occupational History Occupation Employer Comment [employer]* Social History Main Topics Smoking status: Never Smoker Smokeless tobacco: Never Used Alcohol use: Yes Comment: Socially, not while Drug use: No Sexual activity: Yes Partners with: Male control/protection: None Current Outpatient Prescriptions: FOLIC ACID ORAL Take 1 mg by mouth once daily. metformin HCl (METFORMIN ORAL) Take 500 mg by mouth once daily. topiramate (TOPAMAX) 25 mg tablet Take 25 mg by mouth twice daily. escitalopram oxalate (LEXAPRO) 20 mg tablet Take 20 mg by mouth once daily. norethindrone-ethinyl estrad (ALYACEN , , ORAL) Take by mouth once daily. ferrous sulfate 325 mg (65 mg iron) tablet Take 325 mg by mouth. No current facility-administered medications for this visit. No current facility-administered medications on file prior to visit. Allergies: ALLERGIES No Known Allergies Review of Systems: General: No significant weight loss. Head: See HPI Eyes: No vision problems identified. + tinnitus for about 5 years. Ears: No hearing problems identified Respiratory: Negative for cough, wheezing, or shortness of breath Cardiovascular: Denies any chest pain or shortness of breath with exertion, Regular rate and rhythm without significant murmurs Gastrointestinal: Negative for abdominal pain, vomiting, or constipation Genitourinary: See HPI Musculoskeletal: Normal and symmetrical in upper and lower extremities Skin: Negative for lesions, rash, and itching. + eczema Psychiatric: See HPI Hematology/Lymphology: + frequent bloody noses. Endocrine: PCOS. Gestational diabetes, resolved. Neurological: See History of Present Illness PHYSICAL EXAM: BP 124/72 (BP Site: Right Arm, BP Position: Sitting, BP Cuff Size: Large Adult) Pulse 70 Wt 121.7 kg (268 lb 3.2 oz) ? No BMI 39.61 kg/m? General: well-appearing and undistressed young woman. She is non-dysmorphic Head: normocephalic,atraumatic Eyes: Eyes are symmetrical, there are no signs of conjunctivitis, swelling or proptosis and gaze is conjugate Neck: Supple; good ROM. Cardiovascular: Regular rate and rhythm, Normal S1 and S2 Lungs: Clear to auscultation Musculoskeletal: Muscle tone normal in all four limbs without atrophy. Muscle strength 5/5 in both upper and lower extremities Mental status is normal. Neurological: Higher integrative functions: oriented to person, place and time Memory: good recent and remote Attention span and concentration: good 2nd cranial nerve: full visual fernández 3rd, 4th and 6th cranial nerves: PERRL, full extraocular movements 5th cranial nerve: no decrease in facial sensation 7th cranial nerve: facial muscles symmetric and strong 8th cranial nerve: hears finger rub well bilaterally 9th and 10th cranial nerves: spontaneous palate movement, full and symmetric 11th cranial nerve: full strength in shoulder shrug 12th cranial nerve: tongue protrusion full and midline Myotactic reflexes: 2+ and symmetrical, Patellar Gait: Normal Romberg: Negative Sensory examination is grossly intact to light touch Everardo Thurman PA-C MEDICAL DECISION MAKING DATA REVIEW: Excerpt from CT Brain scan 10/17/16: Impression: There are extensive cerebellar tonsils through the foramen magnum. Consistent with a mild chiari [address] malformation. Otherwise normal unenhanced CT scan of the brain. Excerpt from MRI brain 05/27/17: Impression: The tips of the cerebellar tonsils are located 5mm below the foramen magnum. This is compatible with benign tonsillar ectopia. No clara Chiari 1 malformation is seen. No evidence of acute intra-axial pathology. Everardo Thurman PA-C IMPRESSION In summary, Mercedes Jean is a 32 year old female with a hx of depression/anxiety, PCOS, SONNY, and a chiari malformation who presents today for a new patient consultation. She has a long h/o headaches and a sensation of fluid moving in the back of her head. The etiology for these symptoms is unclear. Her mri shows a minimal chiari malformation without significant compression. While the location for her headaches is consistent with a symptomatic chiari, her mild anatomy is less convincing. She just started with neurology 2 weeks ago and it seems that topamax is already helping her. Given this and her mild anatomy I would recommend to continue with neurology for now. I would like to see her back in 3-6 months for an update. We also discussed a possible spine mri to assess for tethered cord or syrinx, but she has no clear symptoms of these and with her mild anatomy I think that this would be low yield. We also discussed a possible ophthalmology consult to rule out papilledema, but her neurologist already noted that they did not see papilledema. For new or persistent symptoms we will reconsider these options. RECOMMENDATIONS The above was extensively discussed with the patient. Based on our findings, I would recommend to continue with neurology. I would like to see Mercedes Jean back in clinic for a follow up visit and repeat assesment in 3-6 months time. TREATMENT OPTIONS AND RISKS: I have discussed the management options and there respective risks and benefits with the patient. Thank you for the opportunity to participate in Mercedes Jean's care. If I can answer any additional questions, I would be pleased to do so. Sincerely, Everardo Thurman PA-C. Supervising Physician: Barbara Iniguez MD, Addi Travis MD, PhD. Pediatric and Adult Neurosurgery 10/21/2017 CC: These final recommendations will be communicated back to the requesting physician/primary care physician by way of shared medical record EMERGENCY DEPARTMENT Observed: 07/15/2017 Status: F Source: WHICK SUMMARY 6:34 AM [facility] REPOSITORY [facility] Medical Records Department [address] [place] [address] Emergency Department Summary 07/15/17 0631 MR#: [id number] Acct: [id number] Name: MERCEDES JEAN Rep #: [id number] : 1985 32 From: Trung Mondragon PCP: Rafael Solomon MD Status: PRE ER - ER Visit Summary Date of Service: 07/15/17 Chief Complaint: Sore throat, dyspnea History of Present Illness: The patient is a 32 F sore throat, dyspnea, voice loss since yesterday. No fevers. No sick contacts. No tobacco history. Nontraumatic headache. Nausea vomiting 1 yesterday. Currently nausea. No hematemesis. No diarrhea. No urinary symptoms. No cough. No other complaints. Physical Examination: General: Alert and oriented 3, no acute distress, loss of voice HEENT: Normocephalic, atraumatic. Moist mucosa membranes. TMs normal bilaterally. No posterior pharyngeal erythema. Airway patent. No stridor. Neck: supple, nontender. No meningismus. Cardiovascular: Regular rate and rhythm, no murmurs Respiratory: Normal breath sounds, symmetric, no distress Abdomen: Soft, nontender, nondistended Extremities: Nontender, no edema, pulses intact 4 Neuro: no focal neurological deficits. Test Results: [] Emergency Department Course and Treatment: Patient vital signs stable, no respiratory distress. History presents concerns for laryngitis. She will be given Zofran for dyspnea. Started on Decadron. Tylenol for headache. No focal neurological deficits. No meningismus. Continue oral hydration. Discussed viral syndrome. Follow-up with PCP, return if any worsening symptoms. Treatment Plan: [] Disposition: Discharge Impression: 1. Acute laryngitis 2. Cephalgia This note was generated with Upstream dictation software. It may contain incorrect words, spelling, and punctuation that were not noted in review of the chart prior to signing ED Disposition - Plan for ED Patient: Disposition: Home or Assisted Living Chief Complaint: Shortness of Breath Diagnosis: Acute laryngitis, Cephalgia Instructions: ED Laryngitis, ED Cephalgia Unspecified Referrals: Rafael Solomon MD [Primary Care Provider] - 3-5 Days if not improving What to do if you have Problems For any increased pain, shortness of breath, bleeding, nausea or vomiting, chest pain, or any unexpected problems, contact your Primary Care Provider. Call [facility] ([phone]) or report to the closest Emergency Room. Call 911 if necessary. 07/15/17 0634 <Electronically signed by Trung Mondragon> Date Trung Mondragon Cosigner Signature (If Indicated): Date CC: Rafael Solomon MD ALLERGIES ALLERGIES DATE TYPE / CODE NAME / CODE REACTION SEVERITY SOURCE 05/28/2018 Drug No Known Unknown [facility] Allergy/416 Allergies/V60595 Hospital 172832(SNOM 0388(RXNORM) Repository ED CT) Drug/721884 [facility] 003([facility] CT) System Repository Drug NO KNOWN [facility] Class/56293 ALLERGIES [facility] 1003(SNOMED Repository CT) ENCOUNTERS ENCOUNTERS ADMIT/DISCHARGE ACCOUNT NUMBER ADMITTING ENCOUNTER LOCATION SOURCE CLASS 05/28/2018/05/28/19 [id number] Ambulatory BMSBuilding: [place] [facility] Repository 05/20/2018 [id number] [facility] ding:LABSPEC Repository 05/12/2018 [id number] Ambulatory [facility] Repository 02/26/2018/02/27/20 [id number] [place] [facility] 18 [facility] ding:[facility] System EDRoom: WR Repository 02/26/2018 [id number] Ambulatory [address] [place] [address] Repository 02/13/2018 [id number] Ambulatory [facility] ding:OPBI Repository 01/14/2018 [id number] Ambulatory [facility] ding:LABSPEC Repository 01/02/2018 [id number] [facility] ding:LABSPEC Repository 11/29/2017 [id number] [facility] ding:CT Repository 10/24/2017 [id number] Ambulatory [facility] ding:RAD Repository 10/21/2017/10/25/19 [id number] Ambulatory [address] Repository 07/25/2017 [id number] Ambulatory [facility] ding:SL Repository 07/15/2017/07/16/19 [id number] Emergency [address] ding:ED Repository 06/20/2017 [id number] Ambulatory [facility] ding:SL Repository PAYERS PAYERS ENCOUNTER GUARANTOR PAYER SUBSCRIBER SOURCE 05/28/2018 MERCEDES Tatum Primary JENNIAHSAN Mata [place] [id number] E Insurance:UNITED RECTORDOB: [facility] [id number] Number: Repository [id number]: 419 [id number] [phone] (HP) Date:2018-01-23 05/28/2018 Secondary NOT GIVENUNK Jazmin Insurance:SELF PAY [facility] Number: Effective Repository Date:2018-05-28 05/20/2018 MERCEDES Tatum Primary JENNIAHSAN Mata Jazmin [id number] Insurance:[facility] RECTORDOB: [facility] [address]Eqbakh [id number], [place] Number: Repository [id number]: 419 [id number] [phone] (HP) Date:0373-55-59WN [address], [place] [address]AW: 05/20/2018 Secondary NOT GIVENUNK [place] Insurance:SELF PAY [facility] Number: Effective Repository Date:2018-05-20 05/12/2018 MERCEDES Tatum Primary MERCEDES Tatum Jazmin [id number] Insurance:CARESOURCE [facility]OB[facility] [id number] Number: Repository [id number]: 419 [id number] [phone] (HP) Date:7847-83-31RY [address] [address]DB: 05/12/2018 Secondary NOT GIVENUNK Jazmin Insurance:SELF PAY [facility] Number: Effective Repository Date:2018-05-12 02/26/2018 MERCEDES Tatum Primary MERCEDES Tatum Nondenominational RECTORDOB: Insurance:INSURANCE RECTORDOB: [facility] E EXCHANGEPolicy Number: [id number] System [facility] Effective E [facility] Repository [place], [place] Date:2018-02-26 [place] [address]Alx: [id number] [address]Gpl: Name:Other BOX (HP) [address] [place] [address] (HP)Tel: [phone]: [phone] 02/26/2018 MERCEDES LUCAS RECTORDOB: [place] RECTORDOB: Insurance:Commercial [id number] [facility] licy Number: 2ND [facility] Repository [address] [place] [address] [id number] [place], [place] Date:Plan Name:Health [id number]: [id number]: (HP) () 02/13/2018 MERCEDES Tatum Primary MERCEDES Rodriguezoster [id number] E Insurance:CARESOURCE RECTORDOB: [facility] JUST FOR [facility] [id number] Number: Repository [id number]: [phone] [id number] [phone] (HP) Date:4706-18-45MV [address] [place] [address]GZ: 02/13/2018 Secondary NOT GIVENUNK [place] Insurance:SELF PAY [facility] Number: Effective Repository Date:2018-01-21 01/14/2018 MERCEDES Tatum Primary MERCEDES Rodriguezoster [id number] Insurance:CARESOURCE RECTORDOB: [facility] JUST FOR MEPolicy [id number], [place] Number: Repository [id number]: [phone] [id number] [phone] (HP) Date:5110-23-03PQ [address] [address]XG: 01/14/2018 Secondary NOT GIVENUNK Jazmin Insurance:SELF PAY [facility] Number: Effective Repository Date:2018-01-14 01/02/2018 MERCEDES Tatum Primary MERCEDES Tatum Jazmin [id number] E Insurance:CARESOURCE RECTORDOB: [facility] [address] JUST [facility] [id number] Number: Repository [address]Nch: 419 [id number] [phone] (HP) Date:8870-42-66EP [address] [address]SN: 01/02/2018 Secondary NOT GIVENUNK [place] Insurance:SELF PAY [facility] Number: Effective Repository Date:2018-01-02 11/29/2017 MERCEDES Tatum Primary MERCEDES Tatum [place] [id number] E Insurance:CARESOURCE RECTORDOB[facility] JUST [facility] [id number], [place] Number: Repository [address]Eqw: 419 [id number] [phone] (HP) Date:9273-28-00QA [address] [address]PB: 11/29/2017 Secondary NOT GIVENUNK Jazmin Insurance:SELF PAY [facility] Number: Effective Repository Date:2017-11-21 10/24/2017 MERCEDES Tatum Primary MERCEDES Tatum Jazmin [id number] E Insurance:CARESOURCE RECTORDOB: Community [address] JUST [facility] [id number], [place] Number: Repository [address]Jte: 419 [id number] [phone] (HP) Date:2120-72-18DI[address] [address]SJ: 10/24/2017 Secondary NOT GIVENUNK Jazmin Insurance:SELF PAY [facility] Number: Effective Repository Date:2017-10-24 07/25/2017 MERCEDES Tatum Primary MERCEDES Tatum [place] [id number] E Insurance:CARESOURCE RECTORDOB: Community [address] JUST FOR MEPolicy [id number], [place] Number: Repository [address]Iyz: 419 [id number] [phone] () Date:2097-48-65WX [address] [address]RI: 07/25/2017 Secondary NOT GIVENUNK Jazmin Insurance:SELF PAY [facility] Number: Effective Repository Date:2017-06-27 07/15/2017 MERCEDES Tatum Primary MERCEDES D [place] [id number] E Insurance:CARESOURCE RECTORDOB: [facility] JUST [facility] [id number] Number: Repository [id number]: 419 [id number] [phone] () Date:5526-38-33XV [address] [address]XP: 07/15/2017 Secondary NOT GIVENUNK [place] Insurance:SELF PAY [facility] Number: Effective Repository Date:2017-07-15 06/20/2017 MERCEDES [id number] Primary MERCEDES RECTORDOB: Jazmin [address] Insurance:CARESOURCE [id number] [address]Ewm: (419) Number: Repository [phone] () [id number] Date:7372-62-43AF [address] [address]SC: 06/20/2017 Secondary NOT GIVENUNK Jazmin Insurance:SELF PAY [facility] Number: Effective Repository Date:2017-06-11
== END ==
PROVIDERS: Family Provider Family Medicine; PCP Family Medicine; Referring Provider Family Medicine; Visit Provider Family Medicine
DX: R22.42 Localized swelling, mass and lump, left lower limb (principal); D22.9 Melanocytic nevi, unspecified
CPT/HCPCS: 88305; 88341; 88342

== ENCOUNTER 2018-06-16 06:40 | Day surgery (SDC) | payer OTHER, SELFPAY ==
[2018-05-28 16:24] VITALS: BMI 38.6
--- NOTE | 2018-06-15 20:57 | HP.PCM_ITS ---
History and Physical Date of Admission: 06/16/18 HISTORY OF PRESENT ILLNESS 33 year old female presents for evaluation of a painful indentation scar contour deformity on the volar lateral aspect right arm. She had a lipoma removed from this area in 2014. Patient developed wound healing issues with wound separation. It healed secondarily with local wound care with antibiotic ointment. This suboptimal healing led to the painful indentation scar contour deformity. She has pain in the area of the scar when she bumps it. She does have a family history of skin cancer. She presents at this time for further evaluation and treatment. PAST MEDICAL HISTORY Anxiety and depression Frequent headaches Polycystic ovary Seasonal allergies PAST SURGICAL HISTORY delivery excision of lipoma ALLERGIES No Known Allergies MEDICATIONS Blood Pressure Test Kit-Large [Advocate Blood Pressure Monitor] escitalopram ferrous sulfate metformin trazodone FAMILY HISTORY Father - Anxiety, Brain cancer Mother - Anxiety, Depression (emotion), Diabetes SOCIAL HISTORY Smoking Status: Never smoker alcohol intake: never substance use type: does not use REVIEW OF SYSTEMS General - Denies fever, fatigue, and weight loss. Eyes - Denies cataracts and glaucoma. ENT - Denies nasal congestion and sore throat. Has chronic sinus problems. Endocrine - Denies excessive thirst and urination. Skin - Denies skin cancer. Has painful indentation scar contour deformity volar lateral aspect right arm. Musculoskeletal - Denies joint pain, joint stiffness, weakness of muscles and joints, back pain, and arthritis. Neuro - Has headaches. Cardiovascular - Denies chest pain, fatigue, and shortness of breath with exertion. Psych - Denies anxiety. Has depression. Respiratory - Denies chronic cough and shortness of breath. Gastrointestinal - Denies nausea, vomiting, diarrhea, and constipation. Hematologic - Denies abnormal bruising and bleeding. Genitourinary - Denies hematuria and urinary frequency. PHYSICAL EXAMINATION General - Alert and oriented. HEENT - PERRL. EOMI. Throat is clear. No suspicious lesions noted. Neck - Supple and non-tender. No cervical adenopathy. No suspicious lesions noted. Lungs- Clear to auscultation. Heart - Regular rate and rhythm. Abdomen - Soft and non distended. Extremities - FROM. No axillary adenopathy. Radial pulses are palpable. Patient is right hand dominant. On the volar lateral aspect right arm is an indentation scar contour deformity. It is tender to palpation. There may be some adherence to the underlying muscle. Measures 2.5 x 1.5 x 0.4 cm. No ulceration. No evidence of infection. No sensory deficits. Neuro - CN II-XII grossly intact. Psych - Normal mood and affect. ASSESSMENT 1. 2.5 cm painful indentation scar contour deformity volar lateral aspect right arm. 2. Family history of skin cancer. 3. History of lipoma excision. PLAN Recommend excision of this painful indentation scar contour deformity volar lateral aspect right arm. The lesion will be sent to pathology for analysis to rule out carcinoma. I will also send a culture because she had wound healing problems after her previous surgery. Sometimes a chronic Staph infection can be present that can help contribute to the pain and adherence of the scar contour deformity. Due to the size of the defect after the excision, reconstruction will be with a local skin flap or skin grafting. Surgery will be done under local anesthesia and IV sedation on an outpatient basis. Patient was informed of the risks and complications of the procedure including alternatives to surgery. These were discussed with the patient personally. Patient voices understanding and whishes to proceed. Some of the risks and complications were included in a form from the [place] [employer].
[2018-06-16] VITALS (8 sets, daily range): BP systolic 112–119; BP diastolic 65–83; PULSE 93–108; RESP 16–18; TEMP 36.9–37.1; O2SAT 96–100; BMI 38.4
--- NOTE | 2018-06-16 08:00 | LES_PTH ---
PATIENT: LANCE MALHOTRA LOC: [facility] [place] U#:[id number] AGE/SX: 33/F ROOM: RE06/16/[address]: Dr. Steven Verdin MD : 1985 BED: DIS: 06/16/2018 SPEC #: [id number] RECD: 06/16/18 09:44 STATUS: LUCRETIA NOREEN #: [id number] MATT: 06/16/18 08:[address]: Steven Verdin DEPT: SURGICAL PATHOLOGY RECD BY: Bhupinder Cowan ENTERED: 06/16/18 10:24 SP TYPE: Lesion OTHR DR: Dr. Rafael Spain MD Tissues: Skin of arm Procedures: Surgery Specimen Level IV HEADER OPERATION: Excision lesion arm with skin flap PRE-OP DIAGNOSIS: 2.5 cm painful indentation scar contour deformity volar lateral right arm TISSUE SUBMITTED: 2.5 cm painful indentation contour volar lateral aspect right arm, suture 12 o'clock MICROSCOPIC DIAGNOSIS Skin and soft tissue, lateral right arm, biopsy: Mild dermal fibrosis. No evidence of malignancy. AM:bev 06/17/18 COMMENT Case has been reviewed in consultation with Dr. Paiz who concurs with the above diagnosis. IDC:SJ MICROSCOPIC DESCRIPTION Slides are reviewed. GROSS DESCRIPTION Received in fixative is one container labeled with the patient's name and designated 2.5 cm painful indentation contour volar lateral aspect right forearm, suture at 12 o'clock. The specimen consists of a loreto-shaped piece of le-white skin with underlying tissue measuring 3 x 2 cm and up to 0.5 cm in thickness. The specimen is inked as follows: 12 to 3 o'clock - black, 3 to 6 o'clock - blue, 6 to 9 o'clock - green and 9 to 12 o'clock - black. The specimen is serially sectioned and submitted entirely in three cassettes. Cassette 1 contains the 6 and 12 o'clock tips. / MIMI:bev 06/16/18 TC:5 CPT: 53154
[2018-06-16 08:20] LABS: Pregnancy, Serum, hCG Quali. NEGATIVE Negative (0-9 Nonpreg)
[2018-06-16] MEDS: Cefazolin 2 GM in 0.9% Normal Saline 100 ML IV (08:22)
[2018-06-16] MEDS: Mupirocin Ointment 22gm Tube 1 APPLIC (08:54)
--- NOTE | 2018-06-16 09:04 | OP.PCM_ITS ---
Report of Operation Date of Procedure: 06/16/18 Pre-Operative Diagnosis: 1. 2.5 cm painful indentation scar contour deformity volar lateral aspect right arm. 2. Family history of skin cancer. 3. History of lipoma excision. Post-Operative Diagnosis: Same. Surgery/Procedure Performed:: Surgical preparation volar lateral aspect right arm with excision 2.5 cm painful indentation scar contour deformity and rhomboid transposition skin flap reconstruction (14.58 cm2). Description of Surgical Findings:: 33 year old female presents for evaluation of a painful indentation scar contour deformity on the volar lateral aspect right arm. She had a lipoma removed from this area in 2014. Patient developed wound healing issues with wound separation. It healed secondarily with local wound care with antibiotic ointment. This suboptimal healing led to the painful indentation scar contour deformity. She has pain in the area of the scar when she bumps it. She does have a family history of skin cancer. Patient was informed of the risks and complications of the procedure including alternatives to surgery. These were discussed with the patient personally. Patient voices understanding and wishes to proceed. Some of the risks and complications were included in a form from the [employer] [place] [employer]. 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 Specimen's removed: Painful indentation scar contour deformity volar lateral aspect right arm to Pathology and Microbiology. Drains: None. Estimated Blood Loss (mL): 5 ml. Description of Procedure: Patient was taken to OR in supine position and was given IV sedation. The right arm was prepped and draped in the usual fashion. SCD's were placed for DVT prophylaxis. Perioperative antibiotics were given intravenously. The right arm indentation scar contour deformity was infiltrated with xylocaine and epinephrine. After waiting 5 minutes for the anesthetic to take effect, I proceeded with surgical preparation right arm with a rhomboid excision around the painful indentation scar contour deformity with a 1 mm margin in all directions thus making it a 2.7 cm excision. The excision extended into the subcutaneous tissue down to the muscular fascia. A fair amount of scar tissue was present that was excised as well. A piece of the deeper tissue was sent to Microbiology for culture. A suture was marked at the 12 oclock position for pathology orientation. The tissue was then sent to Pathology for analysis to rule out carcinoma. A rhomboid flap was designed adjacent to the defect. Incisions were made and the rhomboid flap was elevated on a subcutaneous pedicle and easily transposed into the defect with minimal tension and minimal distortion. Hemostasis was obtained with electrocautery. The size of the defect and the size of the flap required to close the defect was 14.58 cm2. The rhomboid flap was transposed into the defect and closed in a layered fashion with 4-0 Monocryl interrupted sutures for the deep dermis and subcutaneous tissue. The skin was approximated with 4-0 Prolene simple interrupted sutures. Antibiotic ointment was applied to the suture line followed by a gauze dressing and a compression duran wrap. Patient tolerated the procedure well and was sent to PACU in satisfactory condition. Patient will be sent home on antibiotics and pain medication. Patient will keep her right arm elevated during the initial postop period. Pat ient will followup in a week for a wound check and for discussion of the pathology report and the microbiology report. A positive culture will necessitate antibiotic therapy. The sutures will be removed in 1-2 weeks. Grafts/Implants Used: None. - Complications None. - Admit VTE Documentation VTE Present on Admission: No VTE Mechan Device Prophylaxis: SCD's VTE Pharm Prophylaxis ordered?: No Code Visit Surgery Charges CPT - 48028 ICD-10 - S41.101S, T75.89xS, M79.601, Z98.890, Z80.8 23974 S41.101S, T75.89xS, M79.601, Z98.890, Z80.8
--- NOTE | 2018-06-16 09:14 | DCINST_ITS ---
You will use the following diet at home:: No restrictions Discharge Activity: May not drive while taking narcotic pain medications., - - elevate right arm. no heavy lifting. May shower in (days): 2 May resume sexual activity in: No Restrictions Weight Bearing Status: Weight bearing as tolerated Lifting Restrictions: 20 lbs. Keep extremity elevated above heart level: Right Arm Call your doctor if your incision/area has: Continuous Slow Oozing, Sudden Increased Bleeding, Increased Pain/ Swelling, Increased Redness, Foul Smelling Discharge, Swelling at the incision site Call your doctor if you observe: Fever of 101 or Higher, Coldness, Increased Pain, Shortness of breath, Chest pain, Calf discomfort, Uncontrolled pain Suture Line Care: - - after operative dressing removed in two days, apply antibiotic ointment to suture line daily followed by duran wrap for compression. Change Dressing in (Days):: 2 Cleanse incision/area with: - - may get incision wet in the shower in two days. Allergies/Adverse Reactions: Allergies No Known Allergies Allergy (Verified 06/16/18 07:14) Medications to take at Discharge ferrous sulfate 27 mg iron tablet 65 mg PO DAILY tab 05/12/18 metformin 500 mg tablet 500 mg PO DAILY tab 05/12/18 Citalopram [Celexa] 20 mg PO DAILY 06/10/18 Nortriptyline HCl 50 mg PO DAILY 06/10/18 Cefadroxil [Duracef] 500 mg PO BID #10 cap 06/16/18 Oxycodone HCl/Acetaminophen [Percocet 5/325] 1 tab PO TID 7 Days #20 tab 06/16/18 The following prescriptions were given: Cefadroxil [Duracef] 500 mg PO BID #10 cap Oxycodone HCl/Acetaminophen [Percocet 5/325] 1 tab PO TID 7 Days #20 tab Orders to be completed after discharge: ,Urine Time Frame: 06/16/18, Location: Laboratory Primary Care Physician: Rafael Spain MD [Primary Care Provider] - Test Results: Test results from this visit will be discussed in further detail at your follow- up appointment, if applicable. Please Follow Up With: Steven Verdin MD When: one week. call [phone] for appt. Proposed Discharge Date: 06/16/18
== END 2018-06-16 09:51 | disposition home or self-care (01) ==
LOC: SDC 06:40 → AC 06:42
PROVIDERS: Anesthesiology; Family Provider Family Medicine; PCP Family Medicine; Referring Provider Surgery; Visit Provider Surgery
PROC: (CPT 14021; principal; 2018-06-16 07:50)
DX: L90.5 Scar conditions and fibrosis of skin (principal); M79.601 Pain in right arm; E28.2 Polycystic ovarian syndrome; F32.9 Major depressive disorder, single episode, unspecified; F41.9 Anxiety disorder, unspecified; Z79.899 Other long term (current) drug therapy; Z86.32 Personal history of gestational diabetes; Z80.8 Family history of malignant neoplasm of other organs or systems
CPT/HCPCS: 00400; 14021; 84703; 87070; 87075; 87102; 87205; 87206; 88305; J7120; J2405

== ENCOUNTER → 2018-07-09 10:47 | Outpatient (CLI) | payer OTHER, SELFPAY ==
[2018-06-24 14:01] VITALS: BMI 38.4
[2018-07-09 13:00] LABS: Anion Gap 8 (5-15); BUN 11 mg/dL (7-18); BUN/Creat Ratio 13.2 RATIO (10-20); Calcium,Total 8.6 mg/dL (8.5-10.1); Chloride 107 mmol/L (98-107); Cholesterol 214 mg/dL (200); Creatinine, Serum 0.83 mg/dL (0.55-1.02); EST Glomerular Filtration Rate 84 mL/min (>60); Est Glom Filt Rate - Afr Amer 101 mL/min (>60); Glucose 82 mg/dL (74-106); High Density Lipoprotein 42 mg/dL; Potassium 4.3 mmol/L (3.5-5.1); Sodium Level 139 mmol/L (136-145); Triglycerides 177 mg/dL; Very Low Density Lipoprotein 35 mg/dL (5-40)
== END ==
PROVIDERS: Family Provider Family Medicine; PCP Family Medicine; Referring Provider Family Medicine; Visit Provider Family Medicine
DX: Z00.00 Encounter for general adult medical examination without abnormal findings (principal); F32.9 Major depressive disorder, single episode, unspecified
CPT/HCPCS: 36415; 80048; 80061

== ENCOUNTER → 2018-08-11 10:00 | Outpatient (CLI) | payer SELFPAY ==
[2018-08-11 09:56] VITALS: BMI 38.4
[2018-08-11 10:24] LABS: Absolute Lymphocyte Count 2.55 X10^3/ul (0.83-4.51); Absolute Neutrophil Count 5.5 X10^3/uL (2.0-7.7); Basophil# 0.07 X10^3/uL; Basophil% 0.8 % (0-1); Eosinophil# 0.07 X10^3/uL; Eosinophils% 0.8 % (0-5); Hematocrit 40.1 % (37-47); Hemoglobin 13.7 g/dl (12.0-15.0); Lymphocyte # 2.55 X10^3/ul (4.0); Lymphocyte % 29.3 % (19-41); Mean Corp Hgb Conc 34.2 g/gl (32-36); Mean Corpuscular Hgb 26.9 pg (27.0-32.0); Mean Corpuscular Volume 78.6 fL (81-99); Mean Platelet Vol. 9.4 fl (6.2-12.0); Monocyte# 0.47 X10^3/uL; Monocyte% 5.4 % (0-10); Neutrophil # 5.51 X10^3/uL (2.7-7.7); Neutrophil % 63.5 % (47-70); Platelet Count 203 K/mm3 (150-450); RBC Distribution Width CV 14.7 % (11.6-14.6); RBC Distribution Width SD 41.1 fl (35.1-43.9); White Blood Count 8.7 K/mm3 (4.4-11.0)
[2018-08-11 10:27] LABS: POSITIVE COUNT NO; POSITIVE DIFFERENTIAL NO; POSITIVE MORPHOLOGY NO
[2018-08-11 10:57] LABS: Estradiol 31.2 pg/mL; Prolactin 9.3 ng/mL; Thyroid Stim Hormone (TSH) 1.32 uIU/mL (0.358-3.74)
[2018-08-13 03:06] LABS: DHEA Sulfate 117.4 ug/dL (84.8-378.0)
[2018-08-13 15:58] LABS: Testosterone Free 0.7 pg/mL (0.0-4.2)
== END ==
PROVIDERS: Family Provider Family Medicine; PCP Family Medicine; Referring Provider Nurse Practitioner Women's Health; Visit Provider Nurse Practitioner Women's Health
DX: N92.1 Excessive and frequent menstruation with irregular cycle (principal)
CPT/HCPCS: 36415; 82627; 82670; 83001; 84146; 84402; 84403; 84443; 85025; 82626

== ENCOUNTER → 2018-08-20 12:18 | Outpatient (CLI) | payer BC, SELFPAY ==
[2018-08-11 09:56] VITALS: BMI 38.4
--- NOTE | 2018-08-20 12:25 | US_ITS ---
STUDY: ULTRASOUND OF THE FEMALE PELVIS - COMPLETE REASON FOR EXAM: Female, 33 years old. Menorrhagia TECHNIQUE: Transabdominal and transvaginal (Transvaginal imaging, if present, was performed for enhanced visualization of uterus and endometrium, and posterior adnexal structures). COMPARISON: None. FINDINGS: Uterus midline, retroverted 5.0 x 4.4 x 3.3 cm, normal myometrial echotexture. Nabothian cysts of cervix. Endometrium 3 mm, normal echotexture. Right ovary 30 x 28 x 20 mm and left ovary 28 x 22 x 29 mm. Each ovary contains multiple small facility follicles many of which are aligned in a string of pearls pattern around the periphery of the ovary in a pattern that may reflect the presence of polycystic ovary syndrome. There is no ovarian, or adnexal suspicious mass or cyst. There is no significant free fluid. US/Pelvic (Non ) IMPRESSION: Multi-follicular features of each ovary may reflect the presence of polycystic ovary syndrome requiring further clinical correlation. Normal endometrium and myometrium. Electronically Signed: Bennie Hardin MD at 9:24 EDT Tel , Service support ,
--- NOTE | 2018-08-20 12:25 | US_ITS ---
STUDY: ULTRASOUND OF THE FEMALE PELVIS - COMPLETE REASON FOR EXAM: Female, 33 years old. Menorrhagia TECHNIQUE: Transabdominal and transvaginal (Transvaginal imaging, if present, was performed for enhanced visualization of uterus and endometrium, and posterior adnexal structures). COMPARISON: None. FINDINGS: Uterus midline, retroverted 5.0 x 4.4 x 3.3 cm, normal myometrial echotexture. Nabothian cysts of cervix. Endometrium 3 mm, normal echotexture. Right ovary 30 x 28 x 20 mm and left ovary 28 x 22 x 29 mm. Each ovary contains multiple small facility follicles many of which are aligned in a string of pearls pattern around the periphery of the ovary in a pattern that may reflect the presence of polycystic ovary syndrome. There is no ovarian, or adnexal suspicious mass or cyst. There is no significant free fluid. US/Transvaginal Non- IMPRESSION: Multi-follicular features of each ovary may reflect the presence of polycystic ovary syndrome requiring further clinical correlation. Normal endometrium and myometrium. Electronically Signed: Bennie Hardin MD at 9:24 EDT Tel , Service support ,
== END ==
PROVIDERS: Family Provider Family Medicine; PCP Family Medicine; Referring Provider Nurse Practitioner Women's Health; Visit Provider Nurse Practitioner Women's Health
DX: N92.1 Excessive and frequent menstruation with irregular cycle (principal)
CPT/HCPCS: 76830; 76856; 93976

== ENCOUNTER → 2018-08-28 15:21 | Outpatient (CLI) | payer BC, SELFPAY ==
[2018-08-28 14:56] VITALS: BMI 38.4
[2018-09-04 12:57] LABS: HPV APTIMA, High Risk Negative (Negative)
== END ==
PROVIDERS: Family Provider Family Medicine; PCP Family Medicine; Referring Provider Obstetrics & Gynecology; Visit Provider Obstetrics & Gynecology
DX: Z12.4 Encounter for screening for malignant neoplasm of cervix (principal)
CPT/HCPCS: 36415; 86850; 86900; 87624; 88175; G0145

== ENCOUNTER → 2018-10-22 15:10 | Outpatient (CLI) | payer BC, SELFPAY ==
[2018-08-28 14:56] VITALS: BMI 38.4
--- NOTE | 2018-10-22 15:14 | RAD_ITS ---
HISTORY: shoulder pain x couple weeks, pt states shoulder feels warm ADDITIONAL HISTORY: None provided. COMPARISON: None TECHNIQUE: Right shoulder 4 views Number of images including paperwork: 4 FINDINGS: BONES: No acute fracture. JOINTS: No subluxation. SOFT TISSUES: No distinct foreign body. RAD/Shoulder min 2 Views IMPRESSION: No acute osseous abnormality. at [id number] Reported and signed by: Hawa Allred MD Electronically Signed: Hawa Allred MD at 4:24 EDT Tel , Service support ,
== END ==
PROVIDERS: Family Provider Family Medicine; PCP Family Medicine; Referring Provider Family Medicine; Visit Provider Family Medicine
DX: M25.511 Pain in right shoulder (principal)
CPT/HCPCS: 73030

== ENCOUNTER → 2018-11-06 14:45 | Outpatient (CLI) | payer BC, SELFPAY ==
[2018-10-26 16:23] VITALS: BMI 38.4
--- NOTE | 2018-11-06 14:51 | RAD_ITS ---
HISTORY: PAIN TO 4TH AND 5TH DIGITS AND ACROSS BALL OF FOOT AND INTO 5TH METATARSAL S/P HITTING FOOT ON WALL 9 DAYS AGO EXAM/TECHNIQUE: XR Foot Min 3 Views: Right. COMPARISON: None. FINDINGS: # of images incl. paperwork: 3 Acute nondisplaced oblique fracture through the distal shaft of the fifth proximal phalanx. Mild adjacent soft tissue swelling. No other fracture is evident. Normal bony mineralization. Small plantar calcaneal spur. Otherwise no significant degenerative changes. RAD/Foot min 3 Views IMPRESSION: Acute nondisplaced oblique fracture through the distal shaft of the fifth proximal phalanx. at 2030 Reported and signed by: Mason Buckley MD Electronically Signed: Mason Buckley, at 20:29 EDT Tel , Service support ,
== END ==
PROVIDERS: Family Provider Family Medicine; PCP Family Medicine; Referring Provider Family Medicine; Visit Provider Family Medicine
DX: M79.676 Pain in unspecified toe(s) (principal)
CPT/HCPCS: 73630

== ENCOUNTER → 2019-03-22 14:05 | Outpatient (CLI) | payer BC, SELFPAY ==
[2018-12-29 16:01] VITALS: BMI 38.4
[2019-03-22 15:36] LABS: Absolute Neutrophil Count 5.9 X10^3/uL (2.0-7.7); Basophil# 0.05 X10^3/uL; Basophil% 0.6 % (0-1); Eosinophils% 1.1 % (0-5); Hematocrit 37.2 % (37-47); Hemoglobin 12.2 g/dL (12.0-15.0); Lymphocyte % 26.8 % (19-41); Mean Corp Hgb Conc 32.8 g/dL (32-36); Mean Corpuscular Hgb 27.4 pg (27.0-32.0); Mean Corpuscular Volume 83.6 fL (81-99); Mean Platelet Vol. 10.4 fl (6.2-12.0); Monocyte# 0.47 X10^3/uL; Monocyte% 5.3 % (0-10); NRBC Flagged by Analyzer 0 % (0-5); Neutrophil # 5.89 X10^3/uL (2.7-7.7); Neutrophil % 65.9 % (47-70); Platelet Count 208 K/mm3 (150-450); RBC Distribution Width CV 12.7 % (11.6-14.6); RBC Distribution Width SD 38.6 fl (35.1-43.9); Red Blood Count 4.45 M/mm3 (4.2-5.4); White Blood Count 8.9 K/mm3 (4.4-11.0)
[2019-03-22 15:53] LABS: hCG Titer Quant., Serum < 1 mIU/mL (1-3)
[2019-03-22 16:17] LABS: Thyroid Stim Hormone (TSH) 1.63 uIU/mL (0.358-3.74)
[2019-03-22 22:55] LABS: Internal QC Validated? YES +Cl - CLEAR BKGD; Monotest Negative (Negative)
[2019-03-24 12:48] LABS: ASO Titer 71.9 IU/mL (0.0-200.0)
== END ==
PROVIDERS: Obstetrics & Gynecology; Family Provider Family Medicine; PCP Family Medicine; Visit Provider Nurse Practitioner Family
DX: N93.9 Abnormal uterine and vaginal bleeding, unspecified (principal); J02.9 Acute pharyngitis, unspecified
CPT/HCPCS: 84443; 84702; 85025; 86060; 86308

== ENCOUNTER → 2019-03-27 10:45 | Outpatient (CLI) | payer BC, SELFPAY ==
[2018-12-29 16:01] VITALS: BMI 38.4
== END ==
PROVIDERS: Family Provider Family Medicine; PCP Family Medicine; Referring Provider Otolaryngology; Visit Provider Otolaryngology
DX: J02.9 Acute pharyngitis, unspecified (principal)
CPT/HCPCS: 87070; 87077

== ENCOUNTER → 2019-06-23 | Outpatient (CLI) | payer BC, SELFPAY ==
[2019-05-06 10:48] VITALS: BMI 38.4
--- NOTE | 2019-06-22 | TONS_PTH ---
PATIENT: LANCE MALHOTRA LOC: [facility] U#:[id number] AGE/SX: 34/F ROOM: RE06/23/[address]: Dr. Alexander Muir MD : [id number] BED: DIS: 06/23/2019 SPEC #: [id number] RECD: 06/23/19 15:32 STATUS: LUCRETIA NOREEN #: [id number] MATT: 06/22/19 00:[address]: Alexander Muir DEPT: SURGICAL PATHOLOGY RECD BY: Bhupinder Cowan ENTERED: 06/24/19 07:51 SP TYPE: TONSILS OTHR DR: Dr. Rafael Spain MD [facility] Tissues: Tonsil, NOS Procedures: Surgery Specimen Level III HEADER OPERATION: Tonsillectomy PRE-OP DIAGNOSIS: Chronic tonsillitis TISSUE SUBMITTED: Tonsils (pin in right) MICROSCOPIC DIAGNOSIS Bilateral tonsils: Reactive lymphoid hyperplasia, consistent with chronic tonsillitis. SJ:bev 06/25/19 MICROSCOPIC DESCRIPTION Slides are reviewed. GROSS DESCRIPTION Received is one container labeled with the patient's name and designated tonsils - pin on right are two tonsils that in aggregate weigh 12.2 gm. The right tonsil has a pin on it and measures 3.6 x 2 x 1.5 cm. The left tonsil measures 3.3 x 1.7 x 1.5 cm. Both tonsils are similar in appearance. The external surfaces are pink-le, smooth, glistening and somewhat lobulated. Focally they are hemorrhagic, granular and bear cautery artifact. Serial cross sections through the tonsils reveal normal tonsillar architecture. Sections are submitted in two cassettes as follows: 1 - right tonsil, 2 - left tonsil. / AM:bev 06/24/19 TC:3 CPT: 21596 x2
== END | disposition home or self-care (01) ==
LOC: LABSPEC 15:59
PROVIDERS: PCP Family Medicine; Referring Provider Otolaryngology; Visit Provider Otolaryngology
DX: J35.01 Chronic tonsillitis (principal)
CPT/HCPCS: 88304

== ENCOUNTER → 2019-08-16 08:14 | Outpatient (CLI) | payer BC, SELFPAY ==
[2019-05-06 10:48] VITALS: BMI 38.4
[2019-08-16 10:04] LABS: Vitamin D,25 Hydroxy 18.1 ng/mL
[2019-08-16 10:10] LABS: Anion Gap 4 (5-15); BUN 12 mg/dL (7-18); BUN/Creat Ratio 15.2 RATIO (10-20); Calcium,Total 8.9 mg/dL (8.5-10.1); Chloride 110 mmol/L (98-107); Cholesterol 210 mg/dL (200); Creatinine, Serum 0.79 mg/dL (0.55-1.02); EST Glomerular Filtration Rate 88 mL/min (>60); Est Glom Filt Rate - Afr Amer 107 mL/min (>60); Glucose 93 mg/dL (74-106); High Density Lipoprotein 36 mg/dL; Potassium 4.2 mmol/L (3.5-5.1); Sodium Level 140 mmol/L (136-145); Thyroid Stim Hormone (TSH) 1.84 uIU/mL (0.358-3.74); Triglycerides 106 mg/dL; Very Low Density Lipoprotein 21 mg/dL (5-40)
== END ==
PROVIDERS: PCP Family Medicine; Referring Provider Family Medicine; Visit Provider Family Medicine
DX: Z00.00 Encounter for general adult medical examination without abnormal findings (principal)
CPT/HCPCS: 36415; 80048; 80061; 82306; 84443

== ENCOUNTER → 2019-10-26 12:39 | Outpatient (CLI) | payer BC, SELFPAY ==
[2019-05-06 10:48] VITALS: BMI 38.4
[2019-10-26 15:25] LABS: Absolute Lymphocyte Count 1.78 X10^3/uL (0.83-4.51); Absolute Neutrophil Count 5.9 X10^3/uL (2.0-7.7); Basophil# 0.06 X10^3/uL; Basophil% 0.7 % (0-1); Eosinophil# 0.07 X10^3/uL; Eosinophils% 0.9 % (0-5); Hemoglobin 11.4 g/dL (12.0-15.0); Lymphocyte # 1.78 X10^3/ul (4.0); Lymphocyte % 21.8 % (19-41); Mean Corp Hgb Conc 31.7 g/dL (32-36); Mean Corpuscular Hgb 27.3 pg (27.0-32.0); Mean Corpuscular Volume 86.1 fL (81-99); Mean Platelet Vol. 10.2 fl (6.2-12.0); Monocyte# 0.34 X10^3/uL; Monocyte% 4.2 % (0-10); NRBC Flagged by Analyzer 0 % (0-5); Platelet Count 200 K/mm3 (150-450); RBC Distribution Width SD 46.6 fl (35.1-43.9); Red Blood Count 4.18 M/mm3 (4.2-5.4); White Blood Count 8.2 K/mm3 (4.4-11.0)
[2019-10-26 15:34] LABS: hCG Titer Quant., Serum < 1 mIU/mL (1-3)
[2019-10-26 15:45] LABS: AST(SGOT) 11 U/L (15-37); Alanine Aminotransfer ALT/SGPT 20 U/L (13-56); Albumin, Serum 3.7 g/dL (3.2-5.0); Alkaline Phosphatase 81 U/L (45-117); Anion Gap 7 (5-15); BUN 12 mg/dL (7-18); BUN/Creat Ratio 14.6 RATIO (10-20); Calcium,Total 9.7 mg/dL (8.5-10.1); Chloride 105 mmol/L (98-107); Creatinine, Serum 0.82 mg/dL (0.55-1.02); EST Glomerular Filtration Rate 84 mL/min (>60); Est Glom Filt Rate - Afr Amer 102 mL/min (>60); Ferritin 13 ng/mL (8-252); Globulin 3.6 g/dL (2.2-4.2); Glucose 105 mg/dL (74-106); Iron 181 ug/dL (50-170); Iron Binding Capacity,Total 305 ug/dL (250-450); Potassium 3.8 mmol/L (3.5-5.1); Protein, Total 7.3 g/dL (6.4-8.2); Sodium Level 139 mmol/L (136-145); Thyroid Stim Hormone (TSH) 2.02 uIU/mL (0.358-3.74)
== END ==
PROVIDERS: PCP Family Medicine; Referring Provider Family Medicine; Visit Provider Family Medicine
DX: K27.9 Peptic ulcer, site unspecified, unspecified as acute or chronic, without hemorrhage or perforation (principal); F31.9 Bipolar disorder, unspecified
CPT/HCPCS: 36415; 80053; 82728; 83540; 83550; 84443; 84702; 85025

== ENCOUNTER → 2019-12-06 16:08 | Outpatient (CLI) | payer BC, SELFPAY ==
[2019-05-06 10:48] VITALS: BMI 38.4
[2019-12-06 18:20] LABS: Valproic Acid (Depakene) Level 23 ug/mL (50-100)
== END ==
PROVIDERS: PCP Family Medicine; Referring Provider Family Medicine; Visit Provider Family Medicine
DX: F32.9 Major depressive disorder, single episode, unspecified (principal)
CPT/HCPCS: 36415; 80164